=== PATIENT | female | born 1965 | race Caucasian/White ===

== ENCOUNTER 2021-03-02 14:56 | Emergency (ER) | payer BC, OTHER ==
[2021-03-02 15:53] LABS: HEMOGLOBIN 16.9 gm/dl (12.3-15.3); RED BLOOD COUNT 5.31 M/UL (4.00-5.10); WHITE BLOOD COUNT 9.4 K/UL (4.5-11.0)
[2021-03-02 16:15] LABS: BUN/CREATININE RATIO 16 (0-10)
== END 2021-03-02 17:30 | disposition home or self-care (01) ==
LOC: ER1 14:56
PROVIDERS: Emergency Medicine
DX: R51.9 Headache, unspecified (principal); R53.1 Weakness; Z20.822 Contact with and (suspected) exposure to COVID-19
CPT/HCPCS: 0240U; 70450; 71045; 80053; 82550; 82553; 83874; 83880; 84484; 85025; 93005; 99285